=== PATIENT | male | born 1950 | race Caucasian/White ===

== ENCOUNTER → 2016-09-22 | Outpatient (CLI) | payer BC, OTHER ==
[~2016-09-22] MED LIST: GABA1CAP PO
== END | disposition home or self-care (01) ==
LOC: C.RDSM 15:25
PROVIDERS: ATTEND Physical Medicine & Rehabilitation Sports Medicine
DX: M25.552 Pain in left hip (principal)

== ENCOUNTER → 2017-11-04 | Outpatient (CLI) | payer BC ==
[~2017-11-04] MED LIST changes: +GABA-1693 PO; -GABA1CAP PO
--- NOTE | 2017-11-04 09:50 | DIAGNOSTIC IMAGING REPORT ---
TWO VIEW CHEST CLINICAL HISTORY: Palpitations. FINDINGS: PA and lateral chest radiographs are obtained. No prior studies are available for comparison at the time of dictation. The cardiomediastinal silhouette is unremarkable noting mild atherosclerotic calcification of the thoracic aorta. The lungs appear slightly hyperinflated, likely due to good inspiratory result. The lungs and pleural spaces are clear. There is no pneumothorax. The bony thorax appears intact. IMPRESSION: No active disease in the chest. Electronically signed by: Alverto Ferreira M.D. 11/04/2017 9:49 AM Dictated Date/Time: 11/04/2017 9:48 AM
[2017-11-04 09:59] LABS: BASO % 0.2 %; BASO ABS # 0.01 K/uL (0-0.2); EOS % 3.3 %; EOS ABS # 0.16 K/uL (0-0.5); HEMOGLOBIN 14.8 g/dL (14.0-18.0); IG# 0.01 K/uL (0.00-0.02); LYMPH % 30.5 %; MEAN CELL VOLUME 89.8 fL (80-100); MEAN CORPUSCULAR HEMOGLOBIN 30.9 pg (25-34); MEAN CORPUSCULAR HGB CONC 34.4 g/dl (32-36); MEAN PLATELET VOLUME 10.1 fL (7.4-10.4); MONO % 9.1 %; MONO ABS # 0.45 K/uL (0.11-0.59); NEUT % 56.7 %; NEUT ABS # 2.79 K/uL (1.4-6.5); PLATELET COUNT 195 K/uL (130-400); RED CELL DISTRIBUTION WIDTH CV 12.9 % (11.5-14.5); RED CELL DISTRIBUTION WIDTH SD 42.3 fL (36.4-46.3); WHITE BLOOD COUNT 4.92 K/uL (4.8-10.8)
[2017-11-04 10:47] LABS: ALBUMIN 3.6 gm/dl (3.4-5.0); ALKALINE PHOSPHATASE 111 U/L (45-117); ALT/SGPT 19 U/L (12-78); AST/SGOT 20 U/L (15-37); BLOOD UREA NITROGEN 12 mg/dl (7-18); CALCIUM 8.9 mg/dl (8.5-10.1); CARBON DIOXIDE 29 mmol/L (21-32); CHOLESTEROL 186 mg/dl (0-200); CREATININE 0.78 mg/dl (0.60-1.40); GLUCOSE 84 mg/dl (70-99); LDL CHOLESTEROL CALCULATED 119 mg/dl; POTASSIUM 4.3 mmol/L (3.5-5.1); SODIUM 141 mmol/L (136-145)
== END | disposition home or self-care (01) ==
LOC: C.CPL 09:15
DX: Z13.220 Encounter for screening for lipoid disorders (principal); R00.2 Palpitations